=== PATIENT | female | born 1970 | race Caucasian/White ===

== ENCOUNTER 2017-05-23 15:40 | Emergency (ER) | payer OTHER ==
[~2017-05-23] VITALS: Ht 154.9 cm; Wt 71.3 kg
[2017-05-23 17:53] LABS: HEMATOCRIT 40.8 % (36.0-46.0); MCH 30.3 PG (29.0-34.0); MCHC 33.6 G/DL (30.0-36.0); MCV 90.3 FL (83-99); MEAN PLAT.VOLUME 11.3 uM^3 (9.5-12.4); PLATELET COUNT 176 K/uL (156-360); RBC DIS.WIDTH-CV 12.6 % (11.8-14.6); RBC DIS.WIDTH-SD 41.4 % (39-53); RED BLOOD COUNT 4.52 M/uL (3.80-5.20); WHITE BLOOD COUNT 8.2 K/uL (4.1-10.2)
[2017-05-23 18:03] LABS: CHLORIDE 107 mEq/L (99-109)
[2017-05-23 18:04] LABS: SODIUM 141 mEq/L (136-147)
[2017-05-23 18:06] LABS: GLUCOSE 87 mg/dL (70-99)
[2017-05-23 18:07] LABS: ANION GAP 10 MEQ/L (2-14)
[2017-05-23 18:08] LABS: TOTAL BILIRUBIN 0.4 mg/dL (0.0-1.0)
[2017-05-23 18:09] LABS: ALKALINE PHOSPHATASE 55 IU/L (3-129); GFR ESTIMATE (CALCULATED) > 59 mL/min/
[2017-05-23 18:11] LABS: ADD MIUA? NO; BILIRUBIN NEGATIVE; BLOOD NEGATIVE; COLOR STRAW ((YELLOW)); GLUCOSE (STRIP) NEGATIVE; KETONES NEGATIVE; LEUKOCYTES NEGATIVE; NITRITE NEGATIVE; PROTEIN (STRIP) NEGATIVE; SPECIFIC GRAVITY 1.009 (1.000-1.030); UROBILINOGEN 0.2 MG/DL (0.2-1.0)
[2017-05-23 18:11] LABS: UREA NITROGEN (BUN) 8 mg/dL (9-23)
[2017-05-23 18:13] LABS: LIPASE 43 U/L (1.0-51.0)
[2017-05-23 18:14] LABS: TROP-I INTERPRETATION NEGATIVE; TROPONIN-I < 0.01 ng/mL (0.0-0.30)
[2017-05-23 19:15] LABS: AMPHETAMINE NEGATIVE (500 ng/mL); BARBITURATES NEGATIVE (200 ng/mL); BENZODIAZEPINES NEGATIVE (150 ng/mL); COCAINE NEGATIVE (150 ng/mL); INTERNAL CONTROLS VALID? YES; METHADONE NEGATIVE (200 ng/mL); METHAMPHETAMINE NEGATIVE (500 ng/mL); OPIATES (MORPHINE) NEGATIVE (100 ng/mL); OXYCODONE NEGATIVE (100 ng/mL); PHENCYCLIDINE NEGATIVE (25 ng/mL); PROPOXYPHENE NEGATIVE (300 ng/mL); THC CANNABINOIDS NEGATIVE (50 ng/mL); TRICYCLIC ANTIDEPRESSANTS NEGATIVE (300 ng/mL)
[2017-05-23] MEDS ORDERED: WELLBUTRIN XL150 MG PO (19:52)
[2017-05-23] MEDS ORDERED: ATARAX,VISTARIL25 MG PO (19:52)
[2017-05-23] MEDS ORDERED: ZOFRAN ODT4 MG PO (19:53)
[2017-05-23] MEDS ORDERED: ANTIVERT25 MG PO (19:53)
[2017-05-23 20:05] VITALS: BP 125/71
== END 2017-05-23 20:06 | disposition home or self-care (01) ==
LOC: EME 15:40
PROVIDERS: Physician Assistant
DX: R07.89 Other chest pain (principal); M75.92 Shoulder lesion, unspecified, left shoulder; R42 Dizziness and giddiness; F43.20 Adjustment disorder, unspecified; R11.0 Nausea; F41.9 Anxiety disorder, unspecified; Z76.0 Encounter for issue of repeat prescription; F17.200 Nicotine dependence, unspecified, uncomplicated; Z88.0 Allergy status to penicillin
CPT/HCPCS: 71020; 74000; 80053; 81003; 83690; 84484; 85027; 93005; 99281; 99284; J1885